=== PATIENT | female | born 1965 | race Two or more races ===

== ENCOUNTER → 2017-09-14 | Outpatient (CLI) | payer OTHER, MEDICAID | END | disposition home or self-care (01) | LOC: HKI 14:42 | DX: M17.11 Unilateral primary osteoarthritis, right knee (principal) | CPT/HCPCS: Z7500 ==

== ENCOUNTER → 2017-10-08 | Outpatient (CLI) | payer OTHER | END | disposition home or self-care (01) | LOC: HKI 14:04 | DX: M25.561 Pain in right knee (principal) | CPT/HCPCS: 20610 ==